=== PATIENT | female | born 1985 | race Caucasian/White ===

== ENCOUNTER 2020-07-24 10:45 | Inpatient (IN) | payer BC ==
[2020-07-24 12:22] VITALS: BMI 31.7
[2020-07-24 13:18] LABS: BASO % 0.3 % (0-2.0); EOS % 0.1 % (0-4.5); HEMATOCRIT 35.1 % (32.4-45.2); HEMOGLOBIN 11.7 GM/dL (10.7-15.3); LYMPH % 11.4 % (8-40); MCH 29.4 pg (25.7-33.7); MCHC 33.4 g/dl (32.0-36.0); MEAN CELL VOLUME 88.1 fl (80-96); MEAN PLT VOLUME 8.1 fl (7.5-11.1); MONO % 5.1 % (3.8-10.2); NEUT % 83.1 % (42.8-82.8); PLATELET COUNT 300 K/MM3 (134-434); RBC 3.98 M/mm3 (3.60-5.2); RDW 15.1 % (11.6-15.6); WHITE BLOOD COUNT 13.9 K/mm3 (4.0-10.0)
[2020-07-24 13:27] LABS: INR 0.92 (0.83-1.09); PROTHROMBIN TIME (PATIENT) 11.2 SEC (9.7-13.0)
[2020-07-24 13:43] LABS: POTASSIUM 3.9 mmol/L (3.5-5.1)
[2020-07-24 13:44] LABS: BLOOD UREA NITROGEN 7.8 mg/dL (7-18); CALCIUM 9.2 mg/dL (8.5-10.1)
[2020-07-24 13:48] LABS: CREATININE 0.5 mg/dL (0.55-1.3)
[2020-07-24] MEDS: ELECTROLYTE-148 SOLN 1,000 ML IV SCH ×2 (14:00→16:49)
[2020-07-24] MEDS ORDERED: PCA PUMP NR ONE ×2 (15:12→19:31)
[2020-07-24] MEDS ORDERED: FENTANYL/BUPIVACAINE/NS/PF - PCEA - 50 ML DISP.SYRIN EP ONE ×3 (15:13→22:33)
[2020-07-24] MEDS ORDERED: BUPIVACAINE HCL/PF 0.25% (2.5MG/ML) 10 ML VIAL ONE (15:33)
[2020-07-24] MEDS ORDERED: NALOXONE HCL 0.4 MG/ML VIAL IVPUSH PRN (16:23)
[2020-07-24] MEDS ORDERED: FENTANYL/BUPIVACAINE/NS/PF - PCEA - 50 ML DISP.SYRIN EP SCH (16:30)
[2020-07-24] MEDS ORDERED: OXYTOCIN 30 UNITS in 0.9% NS 30 UNIT/500 ML INFUS.BAG IVPB SCH (17:30)
[2020-07-24] MEDS ORDERED: OXYTOCIN 30 UNITS in 0.9% NS 30 UNIT/500 ML INFUS.BAG IVPB ONE (18:10)
[2020-07-25] MEDS ORDERED: OXYTOCIN 20 UNITS in 0.9% NS 20 UNIT/1,000 ML INFUS.BAG IV ONE (01:03)
[2020-07-25] MEDS ORDERED: BENZOCAINE 20% 57 GM BOTTLE TP PRN (03:57)
[2020-07-25] MEDS ORDERED: METHYLERGONOVINE MALEATE 0.2 MG/1 ML AMP IM PRN (03:57)
[2020-07-25] MEDS ORDERED: BENZOCAINE 28 GM HEMORRHOIDAL OINTMENT TP PRN (03:57)
[2020-07-25] MEDS ORDERED: IBUPROFEN 600 MG TABLET (FP) PO PRN (03:57)
[2020-07-25] MEDS ORDERED: WITCH HAZEL 50% (TUCKS) 40 PAD/JAR PAD TP PRN (03:57)
[2020-07-25] MEDS ORDERED: BISACODYL 10 MG SUPP.RECT RC PRN (03:57)
[2020-07-25] MEDS ORDERED: OXYTOCIN 20 UNITS in 0.9% NS 1000 ML INFUS.BAG IV ONE (03:58)
[2020-07-25] MEDS ORDERED: ACETAMINOPHEN 325 MG TABLET (FP) ONE (04:42)
[2020-07-25] MEDS: ACETAMINOPHEN 325 MG TABLET (FP) PO PRN ×3 (04:45→22:12)
[2020-07-26 01:45] VITALS: BP 117/76
[2020-07-26] MEDS: ACETAMINOPHEN 325 MG TABLET (FP) PO PRN (08:24)
[2020-07-26 08:35] LABS: BASO % 0.3 % (0-2.0); HEMATOCRIT 25.6 % (32.4-45.2); HEMOGLOBIN 8.5 GM/dL (10.7-15.3); LYMPH % 22.8 % (8-40); MCH 29.4 pg (25.7-33.7); MCHC 33.3 g/dl (32.0-36.0); MEAN CELL VOLUME 88.5 fl (80-96); MEAN PLT VOLUME 8.2 fl (7.5-11.1); MONO % 4.7 % (3.8-10.2); NEUT % 71.2 % (42.8-82.8); PLATELET COUNT 249 K/MM3 (134-434); RBC 2.89 M/mm3 (3.60-5.2); WHITE BLOOD COUNT 13.5 K/mm3 (4.0-10.0)
[2020-07-26 12:03] VITALS: PULSE 80; TEMP 98.3
[2020-07-26] MEDS ORDERED: SENNOSIDES/DOCUSATE COMBO (SENNA PLUS) TABLET (UD) PO PRN (22:00)
== END 2020-07-26 14:30 | disposition home or self-care (01) | DRG 807 ==
LOC: JDEL 10:45 → JLDR 11:45 → J3W 07-25 05:15
PROVIDERS: ADMIT Specialist; ATTEND Specialist
PROC: 0HQ9XZZ Repair Perineum Skin, External Approach (ICD-10-PCS; principal; 2020-07-25)
PROC: 10E0XZZ Delivery of Products of Conception, External Approach (ICD-10-PCS; 2020-07-25)
DX: O48.0 Post-term pregnancy (principal); O70.0 First degree perineal laceration during delivery; Z37.0 Single live birth; Z3A.40 40 weeks gestation of pregnancy
CPT/HCPCS: 36415; 59409; 80048; 85025; 85461; 85610; 85730; 86780; 86850; 86870; 86900; 86901; 86902; 86999; C9803; U0003